=== PATIENT | female | born 2000 | race Two or more races ===

== ENCOUNTER 2023-04-12 00:17 | Emergency (ER) | payer OTHER | END 2023-04-12 00:45 | disposition home or self-care (01) | LOC: MW.ED 00:17 | DX: S67.92XA Crushing injury of unspecified part(s) of left wrist, hand and fingers, initial encounter (principal); W23.0XXA Caught, crushed, jammed, or pinched between moving objects, initial encounter | CPT/HCPCS: 99283 ==

== ENCOUNTER 2024-07-08 00:07 | Emergency (ER) | payer BC ==
[2024-07-08] MEDS: Dexamethasone 4 MG Tab PO ONE (01:06)
[2024-07-08] MEDS: diphenhydrAMINE 25 MG Cap PO ONE (01:06)
== END 2024-07-08 01:28 | disposition home or self-care (01) ==
LOC: MW.ED 00:07
DX: T78.2XXA Anaphylactic shock, unspecified, initial encounter (principal); Z88.8 Allergy status to other drugs, medicaments and biological substances
CPT/HCPCS: 99284; A9270; J8540; 99283